=== PATIENT | male | born 1970 | race Caucasian/White ===

== ENCOUNTER 2019-10-01 22:09 | Emergency (ER) | payer OTHER ==
[~2019-10-01] VITALS: Ht 182.9 cm; Wt 95.3 kg
[2019-10-01 22:22] VITALS: BP 152/84
--- NOTE | 2019-10-01 22:32 | NUR ---
ERMD AT BEDSIDE.
--- NOTE | 2019-10-01 22:35 | NUR ---
ARRIVED TO ED C/O ANXIETY ATTACK. PT WAS ENJOYING FAMILY DINNER AND ENDED UP HAVING A SZ AND ENDED UP HAVING AN ANXIETY ATTACK. LUNG SOUNDS CLEAR ALL THROUGHOUT. HEART SOUND S1S2 PRESENT. NO RESP DISTRESS NOTED. VSS. A & O X4. CALM, RELAXED, COOPERATIVE. DENIES ANY PAIN NKA. NO PMH.
[2019-10-01] MEDS ORDERED: LORazepam 0.5 MG TAB PO ONE (22:45)
[2019-10-01 23:30] VITALS: BP 152/84
--- NOTE | 2019-10-01 23:30 | NUR ---
Patient discharged with v/s stable. Written and verbal after care instructions given and explained. Patient verbalized understanding. Ambulatory with steady gait. All questions addressed prior to discharge. Advised to follow up with PMD.
== END 2019-10-01 23:30 | disposition home or self-care (01) ==
LOC: MED 22:09
DX: F41.9 Anxiety disorder, unspecified (principal); F12.10 Cannabis abuse, uncomplicated
CPT/HCPCS: 93005; 99284

== ENCOUNTER 2019-11-20 18:32 | Emergency (ER) | payer OTHER ==
[~2019-11-20] VITALS: Ht 182.9 cm; Wt 93.9 kg
[2019-11-20 18:49] VITALS: BP 139/78
--- NOTE | 2019-11-20 19:55 | NUR ---
PT AMBULATED TO BED 8 WITH STADY GAIT.
--- NOTE | 2019-11-20 20:00 | NUR ---
PT 49 Y/O MALE BIB SELF FOR C/O RASH OVER ABD AND LEFT AND RIGHT INNER THIGHS. RASH APPEARS PINPOINT, RED, AND RAISED. PT DENIES PAIN BUT HAS C/O "SEVERE ITCHYNESS." PT AAO X 4. RESPIRATIONS ARE EVEN AND UNLABORED. SKIN IS WARM AND DRY TO TOUCH. AFEBRILE. DENIES COUGH. DENIES N/V/D. VSS. MEDHX: NONE ALLERGIES: NKA
--- NOTE | 2019-11-20 20:17 | NUR ---
Dr. Berrios examining patient.
[2019-11-20 21:20] VITALS: BP 132/88
--- NOTE | 2019-11-20 21:20 | NUR ---
Patient discharged with v/s stable. Written and verbal after care instructions given and explained. Patient alert, oriented and verbalized understanding of instructions. Ambulatory with steady gait. All questions addressed prior to discharge. ID band removed. Patient advised to follow up with PMD. Rx of PERMETHRIN given. Patient educated on indication of medication including possible reaction and side effects. Opportunity to ask questions provided and answered.
== END 2019-11-20 21:20 | disposition home or self-care (01) ==
LOC: MED 18:32
DX: B86 Scabies (principal); L29.9 Pruritus, unspecified; Z98.890 Other specified postprocedural states
CPT/HCPCS: 99282

== ENCOUNTER 2020-06-03 10:51 | Emergency (ER) | payer OTHER ==
[~2020-06-03] VITALS: Ht 182.9 cm; Wt 90.7 kg
[2020-06-03 10:53] VITALS: BP 136/78
--- NOTE | 2020-06-03 11:20 | NUR ---
50/M C/O RIGHT KNEE PAIN X 3 WEEKS. REPORTS POSSIBLY SPRAIN INJURY "TWISTED KNEE" X 3 WEEKS AGO.PAIN SHARP, INTERMITTENT. TRIED TYLENOL NO RELIEF. NO NUMBNESS/TINGLING. AMB STEADY GAIT--NO ASSISTIVE DEVICE. NO OBVIOUS DEFORMITIES. +CSM MED HX: R HERNIORRHAPHY
--- NOTE | 2020-06-03 11:30 | NUR ---
DR. DAWSON EVALUATING PT AT BEDSIDE
[2020-06-03] MEDS ORDERED: KETOROLAC 60 MG/2 ML VIAL IM ONE (11:35)
[2020-06-03 11:48] VITALS: BP 136/78
--- NOTE | 2020-06-03 11:48 | NUR ---
Patient discharged with v/s stable. Written and verbal after care instructions given and explained. Patient alert, oriented and verbalized understanding of instructions. Ambulatory with steady gait. All questions addressed prior to discharge. ID band removed. Patient advised to follow up with PMD. Rx of MOTRIN AND TYLENOL #3 W/ CODEINE given. Patient educated on indication of medication including possible reaction and side effects. Opportunity to ask questions provided and answered.
== END 2020-06-03 11:48 | disposition home or self-care (01) ==
LOC: MED 10:51
DX: S83.91XA Sprain of unspecified site of right knee, initial encounter (principal); K43.2 Incisional hernia without obstruction or gangrene; X58.XXXA Exposure to other specified factors, initial encounter; Y93.89 Activity, other specified; Y92.89 Other specified places as the place of occurrence of the external cause; Y99.8 Other external cause status
CPT/HCPCS: 96372; 99283; J1885

== ENCOUNTER 2020-06-10 08:37 | Emergency (ER) | payer OTHER ==
[~2020-06-10] VITALS: Ht 182.9 cm; Wt 93.0 kg
[2020-06-10 08:40] VITALS: BP 151/88
[2020-06-10] MEDS ORDERED: KETOROLAC 60 MG/2 ML VIAL IM ONE (08:55)
--- NOTE | 2020-06-10 09:00 | NUR ---
50 YEAR OLD MALE COMPLAINS OF RIGHT KNEE PAIN X 1 MONTH. 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 PT REVEALED NEGATIVE X RAY FROM PREVIOUS VISIT. PT AOX4, BREATHING EVEN AND UNLABORED, SKIN WARM AND DRY. BED IN LOWEST POSITION, LOCKED, BED RAIL UPX1. PMH - DENIES ALLERGIES - NKA
--- NOTE | 2020-06-10 09:15 | NUR ---
Patient discharged with v/s stable. Written and verbal after care instructions about knee sprain given and explained. Patient alert, oriented and verbalized understanding of instructions. Ambulatory with steady gait. All questions addressed prior to discharge. ID band removed. Patient advised to follow up with PMD. Rx of benadryl and motrin given. Patient educated on indication of medication including possible reaction and side effects. Opportunity to ask questions provided and answered.
[2020-06-10 09:18] VITALS: BP 151/88
== END 2020-06-10 09:15 | disposition home or self-care (01) ==
LOC: MED 08:37
DX: S86.911A Strain of unspecified muscle(s) and tendon(s) at lower leg level, right leg, initial encounter (principal); R03.0 Elevated blood-pressure reading, without diagnosis of hypertension; X58.XXXA Exposure to other specified factors, initial encounter; Y93.89 Activity, other specified; Y92.89 Other specified places as the place of occurrence of the external cause; Y99.8 Other external cause status
CPT/HCPCS: 29505; 96372; 99283; J1885

== ENCOUNTER 2020-12-09 08:53 | Emergency (ER) | payer OTHER ==
[~2020-12-09] VITALS: Ht 180.3 cm; Wt 88.5 kg
[2020-12-09 09:06] VITALS: BP 144/87
--- NOTE | 2020-12-09 09:15 | NUR ---
PT AMBULATED TO BED 3 WITH STEADY GAIT.
--- NOTE | 2020-12-09 09:20 | NUR ---
50YO MALE C/C BLOOD SUGAR CHECK. PT DIAGNOSED WITH DIABETES YESTERDAY WITH BS OVER 400. TOLD BY MD TO MONITOR SUGAR LEVELS BUT WAS UNABLE TO USE GLUCOMETER AT HOME. DENIES N/V/ H/A, WEAKNESS, NUMBNESS. PT BS IS CURRENTLY 241. PT ATE BREAKFAST ABOUT 45 MINS AGO AND TOOK PRESCRIBED MEDS. PT STATES THAT HE HAD POLYURIA, POLYDYPSIA, AND POLYPHAGIA PRIOR TO BEING DIAGNOSED. PT DENIES PAIN AT THIS TIME.PT A/O X4 WITH EVEN AND UNLABORED RESPIRATIONS. PT SITTING IN CHAIR NEXT TO BEDSIDE. PMH: DM, HLD SURGERIES: HERNIA SURGERY (2014), KINDEY STONES (2019) MEDS: METFORMIN, GLIPLIZIDE, ATORVASTATIN NKA
--- NOTE | 2020-12-09 09:37 | NUR ---
DR TILLMAN AT BEDSIDE
--- NOTE | 2020-12-09 09:50 | NUR ---
PT EDUCATED ON GLUCOMETER USE.
[2020-12-09 10:10] VITALS: BP 144/87
== END 2020-12-09 10:11 | disposition home or self-care (01) ==
LOC: MED 08:53
DX: E11.65 Type 2 diabetes mellitus with hyperglycemia (principal)
CPT/HCPCS: 99281; 99282

== ENCOUNTER 2021-11-29 10:19 | Emergency (ER) | payer OTHER ==
[~2021-11-29] VITALS: Ht 182.9 cm; Wt 68.9 kg
[2021-11-29 10:21] VITALS: BP 141/87
--- NOTE | 2021-11-29 10:35 | NUR ---
DR. DAWSON EVALUATING PATIENT AT BEDSIDE
[2021-11-29] MEDS ORDERED: ATA25 PO (10:42)
[2021-11-29 10:59] VITALS: BP 141/87
--- NOTE | 2021-11-29 10:59 | NUR ---
Patient discharged with v/s stable. Written and verbal after care instructions ABOUT PANIC ATTACK AND PALPITATIONS given and explained. Patient alert, oriented and verbalized understanding of instructions. Ambulatory with steady gait. All questions addressed prior to discharge. ID band removed. Patient advised to follow up with PMD. Rx of ATARAX given.
--- NOTE | 2021-11-29 11:00 | NUR ---
The patient's care was reviewed and supervised by Jeff Whitley RN.
== END 2021-11-29 10:59 | disposition home or self-care (01) ==
LOC: MED 10:19
DX: F41.9 Anxiety disorder, unspecified (principal); R00.2 Palpitations; F17.200 Nicotine dependence, unspecified, uncomplicated; Z98.890 Other specified postprocedural states
CPT/HCPCS: 99283

== ENCOUNTER 2022-11-23 15:37 | Emergency (ER) | payer OTHER ==
[~2022-11-23] VITALS: Ht 182.9 cm; Wt 89.0 kg
[~2022-11-23 15:37] MED LIST: ATA25 PO
[2022-11-23 16:00] VITALS: BP 133/65
--- NOTE | 2022-11-23 16:08 | NUR ---
PATIENT AMBULATED TO BED 7.
[2022-11-23] MEDS ORDERED: KETOROLAC 30 MG/ML VIAL IM ONE (16:20)
[2022-11-23] MEDS ORDERED: CAPS1ADH5 TP (16:21)
[2022-11-23] MEDS ORDERED: IBUP-2213 PO (16:21)
--- NOTE | 2022-11-23 16:22 | NUR ---
52 Y/O M BIB SELF C/O MID BACK PAIN 8 X TODAY. DENIES TRAUMA. BLOOD SUGAR 179 AT THIS TIME. NKA PMH: DM, HTN, HLD
--- NOTE | 2022-11-23 16:46 | NUR ---
Patient discharged with v/s stable. Written and verbal after care instructions given and explained. Patient alert, oriented and verbalized understanding of instructions. Ambulatory with steady gait. All questions addressed prior to discharge. ID band removed. Patient advised to follow up with PMD. Rx of CAPSAICIN/MENTHOL, IBUIPROFEN given. Opportunity to ask questions provided and answered.
== END 2022-11-23 16:46 | disposition home or self-care (01) ==
LOC: MED 15:37
DX: S29.012A Strain of muscle and tendon of back wall of thorax, initial encounter (principal); X58.XXXA Exposure to other specified factors, initial encounter; Y93.89 Activity, other specified; Y92.89 Other specified places as the place of occurrence of the external cause; Y99.8 Other external cause status
CPT/HCPCS: 96372; 99283; J1885

== ENCOUNTER 2023-05-16 14:57 | Emergency (ER) | payer MEDICAID, OTHER ==
[~2023-05-16] VITALS: Ht 182.9 cm; Wt 87.1 kg
[~2023-05-16 14:57] MED LIST changes: +CAPS1ADH5 TP; +IBUP-2213 PO
[2023-05-16 15:04] VITALS: BP 131/88; PULSE 109; RESP 20; TEMP 98; O2SAT 100
[2023-05-16] MEDS ORDERED: NACL 0.9% 1,000 ML IV ONE (17:00)
[2023-05-16] MEDS ORDERED: ONDANSETRON 4 MG/2 ML VIAL IVP ONE (17:05)
[2023-05-16 17:39] LABS: BASOPHILS % (AUTO) 0.3 % (0.0-2.0); EOSINOPHILS % (AUTO) 0.3 % (0.0-4.0); HEMATOCRIT 51.8 % (36-52); HEMOGLOBIN 17.5 g/dL (12.0-18.0); LYMPHOCYTES # (AUTO) 0.3 K/uL (2.0-11.5); LYMPHOCYTES % (AUTO) 2.7 % (20.5-51.1); MEAN CORPUSCULAR HEMOGLOBIN 32 pg (27-31); MEAN CORPUSCULAR HGB CONC 34 g/dL (33-37); MEAN CORPUSCULAR VOLUME 94.7 fL (80-94); MONOCYTES # (AUTO) 0.9 K/uL (0.8-1.0); MONOCYTES % (AUTO) 7.3 % (1.7-9.3); NEUTROPHILS # (AUTO) 10.8 K/uL (1.8-7.7); NEUTROPHILS % (AUTO) 89.4 % (42.2-75.2); PLATELET COUNT (AUTO) 233 K/uL (140-450); RED BLOOD CELL COUNT(AUTO) 5.47 MIL/uL (4.20-6.10); RED CELL DISTRIBUTION WIDTH 13.6 % (11.6-13.7); WHITE BLOOD COUNT (AUTO) 12.1 K/uL (4.8-10.8)
[2023-05-16 17:53] LABS: ALBUMIN 3.9 g/dL (3.4-5.0); ANION GAP 16.1 (8-16); CARBON DIOXIDE 27.8 mmol/L (21-32); CREATININE 0.9 mg/dL (0.6-1.3); POTASSIUM 3.9 mmol/L (3.5-5.1); TOTAL BILIRUBIN 1.7 mg/dL (0.0-1.0)
[2023-05-16] MEDS ORDERED: ONDA-188 PO (18:37)
[2023-05-16 19:37] VITALS: BP 122/78; PULSE 61; RESP 14; TEMP 98.2; O2SAT 99
== END 2023-05-16 19:37 | disposition home or self-care (01) ==
LOC: MED 14:57
DX: K52.9 Noninfective gastroenteritis and colitis, unspecified (principal); R11.2 Nausea with vomiting, unspecified; E11.9 Type 2 diabetes mellitus without complications; Z79.899 Other long term (current) drug therapy
CPT/HCPCS: 36415; 80053; 82948; 83690; 85025; 96361; 96374; 99283; J2405; J7030

== ENCOUNTER 2023-09-21 07:12 | Emergency (ER) | payer MEDICAID, OTHER ==
[~2023-09-21] VITALS: Ht 182.9 cm; Wt 85.7 kg
[~2023-09-21 07:12] MED LIST changes: +ONDA-188 PO
[2023-09-21 07:35] VITALS: BP 133/74; PULSE 106; RESP 18; TEMP 99.3; O2SAT 99
[2023-09-21] MEDS: ACETAMINOPHEN EXTRA STRENGTH 500 MG TAB PO ONE (08:43)
[2023-09-21] MEDS: KETOROLAC 30 MG/ML VIAL IM ONE (08:45)
[2023-09-21 09:46] LABS: FLU A ANTIGEN negative (NEGATIVE); FLU B ANTIGEN negative (NEGATIVE)
[2023-09-21] MEDS ORDERED: IBUP-2213 PO (09:54)
[2023-09-21] MEDS ORDERED: NIRM1TAB PO (09:54)
== END 2023-09-21 10:13 | disposition home or self-care (01) ==
LOC: MED 07:12
DX: U07.1 COVID-19 (principal); E11.9 Type 2 diabetes mellitus without complications; I10 Essential (primary) hypertension; Z79.4 Long term (current) use of insulin; Z79.899 Other long term (current) drug therapy
CPT/HCPCS: 87426; 87804; 96372; 99283; J1885

== ENCOUNTER 2023-10-03 14:25 | Emergency (ER) | payer OTHER ==
[~2023-10-03] VITALS: Ht 167.6 cm; Wt 72.6 kg
[~2023-10-03 14:25] MED LIST changes: +NIRM1TAB PO
[2023-10-03 14:55] VITALS: BP 132/77; PULSE 85; RESP 18; TEMP 100; O2SAT 98
[2023-10-03 18:04] LABS: FLU A ANTIGEN negative (NEGATIVE); FLU B ANTIGEN NEGATIVE (NEGATIVE)
[2023-10-03] MEDS ORDERED: IBUP-2213 PO (18:04)
[2023-10-03] MEDS ORDERED: PROM118S5 PO (18:04)
[2023-10-03] MEDS ORDERED: FLONAS NS (18:04)
[2023-10-03 18:13] VITALS: BP 132/77; PULSE 85; RESP 18; TEMP 98.9; O2SAT 98
== END 2023-10-03 18:13 | disposition home or self-care (01) ==
LOC: MED 14:25
DX: J06.9 Acute upper respiratory infection, unspecified (principal); Z20.822 Contact with and (suspected) exposure to COVID-19; E11.9 Type 2 diabetes mellitus without complications; I10 Essential (primary) hypertension; Z79.899 Other long term (current) drug therapy; Z79.1 Long term (current) use of non-steroidal anti-inflammatories (NSAID)
CPT/HCPCS: 71045; 99284

== ENCOUNTER 2023-10-18 09:14 | Emergency (ER) | payer OTHER ==
[~2023-10-18 09:14] MED LIST changes: +FLONAS NS; +PROM118S5 PO
== END 2023-10-18 09:24 | disposition left against medical advice (07) ==
LOC: MED 09:14
DX: R73.9 Hyperglycemia, unspecified (principal); Z53.21 Procedure and treatment not carried out due to patient leaving prior to being seen by health care provider

== ENCOUNTER 2024-02-15 08:04 | Emergency (ER) | payer OTHER ==
[~2024-02-15] VITALS: Ht 182.9 cm; Wt 85.3 kg
[2024-02-15 08:06] VITALS: BP 133/83; PULSE 73; RESP 18; TEMP 97.5; O2SAT 97
[2024-02-15] MEDS: ONDANSETRON 4 MG ODT PO ONE (08:27)
[2024-02-15] MEDS: KETOROLAC 30 MG/ML VIAL IM ONE (08:28)
[2024-02-15] MEDS ORDERED: IBUP-2213 PO (08:55)
[2024-02-15 09:04] VITALS: BP 130/72; PULSE 69; RESP 16; TEMP 98; O2SAT 98
== END 2024-02-15 09:04 | disposition home or self-care (01) ==
LOC: MED 08:04
DX: S50.11XA Contusion of right forearm, initial encounter (principal); S30.0XXA Contusion of lower back and pelvis, initial encounter; S09.90XA Unspecified injury of head, initial encounter; E11.9 Type 2 diabetes mellitus without complications; I10 Essential (primary) hypertension; Z79.4 Long term (current) use of insulin; Z79.899 Other long term (current) drug therapy; Y04.8XXA Assault by other bodily force, initial encounter; Y93.89 Activity, other specified; Y92.89 Other specified places as the place of occurrence of the external cause; Y99.8 Other external cause status
CPT/HCPCS: 73090; 73130; 96372; 99284; J1885; Q0162

== ENCOUNTER 2024-03-10 07:46 | Emergency (ER) | payer OTHER ==
[~2024-03-10] VITALS: Ht 182.9 cm; Wt 85.3 kg
[2024-03-10 07:53] VITALS: BP 130/82; PULSE 81; RESP 18; TEMP 98.2; O2SAT 99
[2024-03-10] MEDS: ONDANSETRON 4 MG ODT PO ONE (08:23)
[2024-03-10] MEDS ORDERED: ONDA-188 SL (08:44)
[2024-03-10 09:23] VITALS: BP 121/80; PULSE 78; RESP 20; TEMP 98.2; O2SAT 97
== END 2024-03-10 09:23 | disposition home or self-care (01) ==
LOC: MED 07:46
DX: R11.2 Nausea with vomiting, unspecified (principal); T50.905A Adverse effect of unspecified drugs, medicaments and biological substances, initial encounter; E11.9 Type 2 diabetes mellitus without complications; I10 Essential (primary) hypertension; F03.90 Unspecified dementia, unspecified severity, without behavioral disturbance, psychotic disturbance, mood disturbance, and anxiety; Z79.1 Long term (current) use of non-steroidal anti-inflammatories (NSAID); Z79.899 Other long term (current) drug therapy; Y92.89 Other specified places as the place of occurrence of the external cause
CPT/HCPCS: 82948; 99283; Q0162

== ENCOUNTER 2024-06-05 14:27 | Emergency (ER) | payer OTHER ==
[~2024-06-05] VITALS: Ht 182.9 cm; Wt 87.1 kg
[~2024-06-05 14:27] MED LIST changes: +ONDA-188 SL
[2024-06-05 14:43] VITALS: BP 146/85; PULSE 90; RESP 16; TEMP 98.3; O2SAT 98
== END 2024-06-05 15:02 | disposition home or self-care (01) ==
LOC: MED 14:27
DX: K08.89 Other specified disorders of teeth and supporting structures (principal); E11.9 Type 2 diabetes mellitus without complications; F03.90 Unspecified dementia, unspecified severity, without behavioral disturbance, psychotic disturbance, mood disturbance, and anxiety; I10 Essential (primary) hypertension; Z79.899 Other long term (current) drug therapy
CPT/HCPCS: 82948; 99282

== ENCOUNTER 2024-07-14 09:07 | Emergency (ER) | payer MEDICAID, OTHER ==
[~2024-07-14] VITALS: Ht 182.9 cm; Wt 88.9 kg
[2024-07-14 09:08] VITALS: BP 140/78; PULSE 79; RESP 18; TEMP 98; O2SAT 96
[2024-07-14] MEDS ORDERED: PRED20TA5 PO (09:46)
[2024-07-14] MEDS ORDERED: DIPH25TA53 PO (09:46)
[2024-07-14] MEDS ORDERED: CEPH-588 PO (09:46)
== END 2024-07-14 10:04 | disposition home or self-care (01) ==
LOC: MED 09:07
DX: L03.113 Cellulitis of right upper limb (principal); R21 Rash and other nonspecific skin eruption; E11.9 Type 2 diabetes mellitus without complications; I10 Essential (primary) hypertension; F12.90 Cannabis use, unspecified, uncomplicated; Z98.890 Other specified postprocedural states; Z79.899 Other long term (current) drug therapy
CPT/HCPCS: 82948; 99283